=== PATIENT | female | born 1950 | race Caucasian/White ===

== ENCOUNTER → 2021-03-03 14:42 | Outpatient (BNVA) | payer MEDICARE, OTHER, SELFPAY | PROVIDERS: PCP Registered Nurse Rehabilitation; Visit Provider Psychiatry & Neurology Neurology | DX: G43.909 Migraine, unspecified, not intractable, without status migrainosus (principal); G20 Parkinson's disease | CPT/HCPCS: 99212 ==

== ENCOUNTER → 2021-06-30 10:19 | Outpatient (BNVA) | payer MEDICARE, OTHER, SELFPAY | PROVIDERS: PCP Registered Nurse Rehabilitation; Visit Provider Psychiatry & Neurology Neurology | DX: G20 Parkinson's disease (principal); G43.909 Migraine, unspecified, not intractable, without status migrainosus | CPT/HCPCS: 99212 ==

== ENCOUNTER → 2021-11-06 09:47 | Outpatient (BNVA) | payer MEDICARE, OTHER, SELFPAY | PROVIDERS: PCP Registered Nurse Rehabilitation; Visit Provider Psychiatry & Neurology Neurology | DX: G20 Parkinson's disease (principal); G43.909 Migraine, unspecified, not intractable, without status migrainosus | CPT/HCPCS: 99212 ==

== ENCOUNTER → 2022-05-06 10:45 | Outpatient (BNVA) | payer MEDICARE, OTHER, SELFPAY | PROVIDERS: PCP Registered Nurse Rehabilitation; Visit Provider Psychiatry & Neurology Neurology | DX: G20 Parkinson's disease (principal); G43.909 Migraine, unspecified, not intractable, without status migrainosus | CPT/HCPCS: 99212 ==

== ENCOUNTER 2022-11-10 10:16 | Outpatient (AMB) | payer MEDICARE, OTHER, SELFPAY ==
[2022-11-10 10:22] VITALS: BP 116/80; PULSE 69; O2SAT 99; BMI 20.9
--- NOTE | 2022-11-10 10:22 | A.OFFVIS_ITS ---
Intake Vital Signs 11/10/22 10:22 Height 5 ft 1 in Weight 110 lb 8 oz BMI 20.9 BP 116/80 Blood Pressure Location Lt brachial Position Sitting Pulse 69 Pulse Source Pulse Oximeter Pulse Oximetry (%) 99 Oxygen Delivery Method Room Air Intake Visit Reasons: 6mo f/u-lvm Intake Note: Pt presents to the office today for a 6 month follow up. Pt states she still has occasional migraines but the medication has been helpful. Pt states she has been having trouble sleeping. Patients has been noticing her body moving a lot more. Accompanied by: Spouse Allergies No Known Allergies Allergy (Verified 11/10/22 10:26) HPI HPI Comments History of Present Illness Details 72y/o female with parkinsons disease and migraines comes for follow up. She is on depakote 250 mg bid her migraines are well controlled. she had 1 migraine since last month and responds to imitrex 50mg .she has about 1-3 /month and responds to sumatriptan. she has mild increased tremors and feels she has more days. Her dyskinesias have increased No falls. Her gait is slow , she uses a cane. Her memory is stable Sleep is poor due increased dyskinesias at night which wakes her up.she also has increased leg movements which looks chorieform . No speech or swallowing issues. No hallucinations she is on rytary 2 caps bid and 3 caps qhs - the instruction was to decrea se to 2-2-1 and patient misunderstood. [facility] Medical History Migraine Parkinsons disease Surgical History History of hip surgery Family History Father Heart disease Alzheimer disease Mother Heart disease Diabetes Obesity Social History Household Members: Spouse Housing: House Alcohol intake: never Patient Tobacco Use Status: Never used Tobacco Physical Exam Vital Signs: Last Vital Signs Pulse 69 11/10/22 10:22 BP 116/80 11/10/22 10:22 Pulse Ox 99 11/10/22 10:22 Oxygen Delivery Method Room Air 11/10/22 10:22 BMI result Body Mass Index 20.9 Const Other: Mild decrease facial expression and blink Speech-mild dysprosody lucia UE tremors- intermittent and mild Right Ue cogwheel rigidty FFm and foot taps - mildly decreased Gait- better stride mild stoopand decreased arm swings no dyskinesias Assessment & Plan Assessment & Plan (1) Parkinsons disease: Code(s): G20 - Parkinson's disease (2) Migraine: Code(s): G43.909 - Migraine, unspecified, not intractable, without status migrainosus Plan Continue exercises. Continue depakote Er 250mg bid and imitrex 50mg as needed. Rytary 23.75/95 2 caps 6am, 12 noon, 2 caps 6pm Coding Level of Care Code Est Pt Level 4 (29596) Diagnoses Parkinsons disease G20 Migraine G43.909
== END 2022-11-10 10:53 | disposition home or self-care (01) ==
PROVIDERS: Visit Provider Psychiatry & Neurology Neurology
DX: G20 Parkinson's disease (principal); G43.909 Migraine, unspecified, not intractable, without status migrainosus
CPT/HCPCS: 99214

== ENCOUNTER → 2022-11-10 10:16 | Outpatient (BNVA) | payer MEDICARE, OTHER, SELFPAY | PROVIDERS: Visit Provider Psychiatry & Neurology Neurology | DX: G43.909 Migraine, unspecified, not intractable, without status migrainosus (principal); G20.C Parkinsonism, unspecified; Z79.899 Other long term (current) drug therapy | CPT/HCPCS: 99212 ==

== ENCOUNTER 2023-03-10 13:19 | Outpatient (AMB) | payer MEDICARE, OTHER, SELFPAY ==
--- NOTE | 2023-03-10 13:30 | MHC.OFFVIS ---
Intake Vital Signs 03/10/23 13:31 Height 5 ft 1 in Weight 113 lb 2 oz BMI 21.4 BP 142/82 H Blood Pressure Location Rt brachial Position Sitting Respiration 16 Pulse 78 Pulse Source Pulse Oximeter Pulse Oximetry (%) 97 Oxygen Delivery Method Room Air Intake Visit Reasons: 3 mnts f/u appt-CONFIRMED Intake Note: Pt presents for 3 month follow up for Parkinson's. 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 she had COVID 1 month ago and she recovered well. She is on depakote 250 mg bid her migraines are well controlled. she had 1 migraine since last month and responds to imitrex 50mg .she has about 1-3 /month and responds to sumatriptan. she has mild increased tremors and feels she has some freezing. Her dyskinesias have decreased with drop in rytary dose. No falls. Her gait is slow , she uses a cane. Her memory is stable .she also has increased leg movements which looks chorieform . No speech or swallowing issues. No hallucinations she is on rytary 2-2-1 and patient misunderstood. [facility] Medical History Migraine Parkinsons disease Surgical History History of hip surgery Family History Father Heart disease Alzheimer disease Mother Heart disease Diabetes Obesity Social History Household Members: Spouse Housing: House Alcohol intake: never Patient Tobacco Use Status: Never used Tobacco Physical Exam Vital Signs: Last Vital Signs Pulse 78 03/10/23 13:31 Resp 16 03/10/23 13:31 BP 142/82 H 03/10/23 13:31 Pulse Ox 97 03/10/23 13:31 Oxygen Delivery Method Room Air 03/10/23 13:31 BMI result Body Mass Index 21.4 Const Other: Mild decrease facial expression and blink Speech-mild dysprosody lucia UE tremors- intermittent and mild Right Ue cogwheel rigidty FFm and foot taps - mildly decreased Gait- better stride mild stoopand decreased arm swings no dyskinesias Orientation/consciousness: patient oriented x3 Neuro General: patient oriented x3 Cognition (Neuro): normal cognition Assessment & Plan Assessment & Plan (1) Parkinsons disease: Code(s): G20 - Parkinson's disease (2) Migraine: Code(s): G43.909 - Migraine, unspecified, not intractable, without status migrainosus Plan Increase exercises. declines PT Continue depakote Er 250mg bid and imitrex 50mg as needed. Rytary 23.75/95 2 caps 6am, 12 noon, 1 caps 6pm Coding Level of Care Code Est Pt Level 4 (66488) Diagnoses Parkinsons disease G20 Migraine G43.909
[2023-03-10 13:31] VITALS: BP 142/82; PULSE 78; RESP 16; O2SAT 97; BMI 21.4
== END 2023-03-10 14:00 | disposition home or self-care (01) ==
PROVIDERS: PCP Registered Nurse Rehabilitation; Visit Provider Psychiatry & Neurology Neurology
DX: G20.B2 Parkinson's disease with dyskinesia, with fluctuations (principal); G43.909 Migraine, unspecified, not intractable, without status migrainosus
CPT/HCPCS: 99214

== ENCOUNTER → 2023-03-10 13:19 | Outpatient (BNVA) | payer MEDICARE, OTHER, SELFPAY | PROVIDERS: PCP Registered Nurse Rehabilitation; Visit Provider Psychiatry & Neurology Neurology | DX: G20.A1 Parkinson's disease without dyskinesia, without mention of fluctuations (principal); G43.909 Migraine, unspecified, not intractable, without status migrainosus; Z79.899 Other long term (current) drug therapy | CPT/HCPCS: 99212 ==

== ENCOUNTER 2023-05-31 09:48 | Outpatient (AMB) | payer MEDICARE, OTHER, SELFPAY ==
[2023-05-31 10:03] VITALS: BP 120/70; PULSE 80; O2SAT 98; BMI 22.0
--- NOTE | 2023-05-31 10:03 | MHC.OFFVIS ---
Vital Signs 05/31/23 10:03 Height 5 ft 1 in Weight 116 lb 8 oz BMI 22.0 BP 120/70 Blood Pressure Location Rt brachial Position Sitting Pulse 80 Pulse Source Pulse Oximeter Pulse Oximetry (%) 98 Oxygen Delivery Method Room Air Intake Visit Reasons: 2 mo f/u-LVM Intake Note: Patient presents for a 3 month fu- Migraines Ham Doctor Required: No Accompanied by: Spouse Allergies No Known Allergies Allergy (Verified 05/31/23 10:08) HPI Comments Details: 73y/o female with parkinsons disease and migraines comes for follow up. She is on depakote 250 mg bid her migraines are well controlled. she has milder 2-3 migraine/ month and responds to imitrex 50mg .she has about 1-3 /month and responds to sumatriptan. she has mild increased tremors and feels she has some freezing. Her dyskinesias have decreased with drop in rytary dose. No falls. Her gait is slow , she uses a cane. Her memory is stable No speech or swallowing issues. No hallucinations she is on rytary 2-2-1 [facility] Medical History (Updated 05/31/23 @ 10:36 by Bing Farley MD) Parkinson's disease with dyskinesia Migraine Parkinsons disease Surgical History History of hip surgery Family History Father Heart disease Alzheimer disease Mother Heart disease Diabetes Obesity Social History Household Members: Spouse Housing: House Alcohol intake: never Patient Tobacco Use Status: Never used Tobacco Physical Exam Vital Signs: Last Vital Signs Pulse 80 05/31/23 10:03 BP 120/70 05/31/23 10:03 Pulse Ox 98 05/31/23 10:03 Oxygen Delivery Method Room Air 05/31/23 10:03 BMI result Body Mass Index 22.0 Const Other: Mild decrease facial expression and blink Speech-mild dysprosody No tremors Right Ue cogwheel rigidty FFm and foot taps - mildly decreased Gait- better stride mild stoop slowness with cane no dyskinesias Orientation/consciousness: patient oriented x3 Neuro General: patient oriented x3 Cognition (Neuro): normal cognition Assessment & Plan Assessment & Plan (1) Parkinson's disease with dyskinesia: Code(s): G20.B1 - Parkinson's disease with dyskinesia, without mention of fluctuations Category: Medical (2) Migraine: Code(s): G43.909 - Migraine, unspecified, not intractable, without status migrainosus Category: Medical Plan Increase exercises. PT Continue depakote Er 250mg bid and imitrex 50mg as needed. iLndsay 23.75/95 2 caps 6am, 12 noon, 1 caps 6pm Orders: Orders PT Evaluation and Treatment Today G20 - Parkinson's disease
== END 2023-05-31 10:40 | disposition home or self-care (01) ==
LOC: HO.HSMS 09:54
PROVIDERS: PCP Registered Nurse Rehabilitation; Visit Provider Psychiatry & Neurology Neurology
DX: G20.B1 Parkinson's disease with dyskinesia, without mention of fluctuations (principal); G43.909 Migraine, unspecified, not intractable, without status migrainosus
CPT/HCPCS: 99214

== ENCOUNTER → 2023-05-31 09:54 | Outpatient (BNVA) | payer MEDICARE, OTHER, SELFPAY | PROVIDERS: PCP Registered Nurse Rehabilitation; Visit Provider Psychiatry & Neurology Neurology | DX: G20.B1 Parkinson's disease with dyskinesia, without mention of fluctuations (principal); G43.909 Migraine, unspecified, not intractable, without status migrainosus; Z79.899 Other long term (current) drug therapy | CPT/HCPCS: 99212 ==

== ENCOUNTER 2023-12-06 10:18 | Outpatient (AMB) | payer MEDICARE, OTHER, SELFPAY ==
--- NOTE | 2023-12-06 10:19 | A.OFFVIS_ITS ---
Vital Signs 12/06/23 10:22 Height 5 ft 1 in Weight 110 lb 4 oz BMI 20.8 BP 122/80 Blood Pressure Location Lt brachial Position Sitting Pulse 75 Pulse Source Pulse Oximeter Pulse Oximetry (%) 98 Oxygen Delivery Method Room Air Intake Visit Reasons: follow up Intake Note: Patient presents in office for a 6 mo fu for Migraines. 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 She is on depakote 250 mg bid her migraines are well controlled. She has milder 2-3 migraine/ month and responds to imitrex 50mg. Her reports she has increased flailing of the arms and feet at night, she is somewhat forgetful and has more difficulty with initiating her steps, freezing during walking. Her dyskinesias have increased according to him at night as she keeps him up at night for about an hour during these episodes. No falls. Her gait is slow with knees bent, she uses a cane. No speech or swallowing issues, she completes all her ADLs with minimal help and visits their fabric store daily for walking and socialization. She reports no hallucinations. She is on ta 2-2-1 Depakote 250 mg BID. [facility] Medical History (Updated 12/06/23 @ 12:09 by Marleny Cavazos PA-C) Abnormality of gait due to impairment of balance Parkinson's disease with dyskinesia Migraine Parkinsons disease Surgical History History of hip surgery Family History Father Heart disease Alzheimer disease Mother Heart disease Diabetes Obesity Social History Household Members: Spouse Housing: House Alcohol intake: never Patient Tobacco Use Status: Never used Tobacco Review of Systems Const Reports as per HPI Neuro Details: Cooperative. Physical Exam Vital Signs: Last Vital Signs Pulse 75 12/06/23 10:22 BP 122/80 12/06/23 10:22 Pulse Ox 98 12/06/23 10:22 Oxygen Delivery Method Room Air 12/06/23 10:22 BMI result Body Mass Index 20.8 Const General: cooperative and comfortable Nutritional Appearance: thin Orientation/consciousness: patient oriented x3 Neuro General: patient oriented x3 Cranial nerves: Yes CN's II-XII intact bilaterally Cognition (Neuro): normal cognition Gait exam (Neuro): Steppage gait present (small steps, narrow gait), Assisted gait required (cane) Gait assisted method: other and Other gait observations present (Tilts to the left, Cane in Rt, L hand not swinging.) Pupils: Normal pupillary reactivity/response: bilateral Psych Speech and movement: Slowed movement present (Neuro) Attitude: cooperative Thought process: Normal thought process present Insight: Good insight present (Psych) Judgement: Good judgement present (Psych) Assessment & Plan Assessment & Plan (1) Periodic limb movements of sleep: Code(s): G47.61 - Periodic limb movement disorder Category: Medical Plan: Flailing movements of the upper and lower extremites Gabapentin 100 mg po daily at bedtime. (2) Parkinson's disease with dyskinesia: Code(s): G20.B1 - Parkinson's disease with dyskinesia, without mention of fluctuations Category: Medical Qualifiers: Fluctuating manifestations: with fluctuating manifestations Qualified Code(s): G20.B2 - Parkinson's disease with dyskinesia, with fluctuations Plan: For night time increased movements, will increase dosage of Rytary to 4x a day 2 in the morning, 2 at lunch and 2 at bedtime. Take medication on an empty stomach, no proteins within a 30 minute period, make sure to drink plenty of water. (3) Need for physical therapy assessment: Code(s): Z01.89 - Encounter for other specified special examinations Category: Medical Plan: Physical Therapy for gait tilt and balance while walking due to Parkinsons. Orders: Orders PT Evaluation and Treatment Today G20.B1 - Parkinson's disease with dyskinesia, without mention of fluctuations Coding Level of Care Code Tele Est Pt Level 4 (83421) Complex EM visit Add On G2211 Diagnoses Periodic limb movements of sleep G47.61 Parkinson's disease with dyskinesia and fluctuating manifestations G20.B2 Fluctuating manifestations: with fluctuating manifestations Need for physical therapy assessment Z01.89
[2023-12-06 10:22] VITALS: BP 122/80; PULSE 75; O2SAT 98; BMI 20.8
== END 2023-12-06 11:03 | disposition home or self-care (01) ==
LOC: HO.HSMS 10:18
PROVIDERS: PCP Registered Nurse Rehabilitation; Visit Provider Psychiatry & Neurology Neurology
DX: G47.61 Periodic limb movement disorder (principal); G20.B2 Parkinson's disease with dyskinesia, with fluctuations; Z01.89 Encounter for other specified special examinations
CPT/HCPCS: 99214; G2211

== ENCOUNTER → 2023-12-06 10:18 | Outpatient (BNVA) | payer MEDICARE, OTHER, SELFPAY | PROVIDERS: PCP Registered Nurse Rehabilitation; Visit Provider Psychiatry & Neurology Neurology | DX: G20.B2 Parkinson's disease with dyskinesia, with fluctuations (principal); G43.909 Migraine, unspecified, not intractable, without status migrainosus; G47.61 Periodic limb movement disorder | CPT/HCPCS: 99212 ==

== ENCOUNTER 2024-11-09 09:53 | Outpatient (AMB) | payer MEDICARE, OTHER, SELFPAY ==
--- NOTE | 2024-11-09 09:54 | A.OFFVIS_ITS ---
Vital Signs 11/09/24 09:55 Height 5 ft 1 in Weight 114 lb BMI 21.5 BP 128/82 Blood Pressure Location Rt brachial Position Sitting Pulse 76 Pulse Source Pulse Oximeter Pulse Oximetry (%) 97 Oxygen Delivery Method Room Air Intake Visit Reasons: Follow Up Intake Note: Follow up Periodic limb movement disorder and Parkinson's Front End Assistant Required: No Accompanied by: Spouse Allergies No Known Allergies Allergy (Verified 11/09/24 09:55) Medication List - Last Reconciled 11/09/24 by Bing Farley MD acetaminophen (Tylenol) 325 mg PO QID PRN carbidopa-levodopa 23.75-95 mg ER (Rytary) 3 caps PO TID divalproex ER (Depakote ER) 250 mg PO BID docusate sodium (Colace) 100 mg PO DAILY sumatriptan succinate (Imitrex) take 1 tab at onset of headache; if no relief may repeat 1 tab after at least 2 hrs; max = 4 tabs/24 hr PO HPI Comments Details: 74y/o female with parkinsons disease and migraines comes for follow up.No change since last visit. No falls , No hallucinations No dizziness. She is on depakote 250 mg bid her migraines are well controlled. She has milder 2-3 migraine/ month and responds to imitrex 50mg. Her dyskinesias are better. she slows down after 3 pm - more freezing episodes No falls. Her gait is slow with knees bent, she uses a cane. No speech or swallowing issues, she completes all her ADLs with minimal help and visits their fabric store daily for walking and socialization. She reports no hallucinations. She is on rytary 23/95 2-2-2 Depakote 250 mg BID. [facility] Medical History Abnormality of gait due to impairment of balance Parkinson's disease with dyskinesia Migraine Parkinsons disease Surgical History History of hip surgery Family History Father Heart disease Alzheimer disease Mother Heart disease Diabetes Obesity Social History Household Members: Spouse Housing: House Alcohol intake: never Patient Tobacco Use Status: Never used Tobacco Physical Exam Vital Signs: Last Vital Signs Pulse 76 11/09/24 09:55 BP 128/82 11/09/24 09:55 Pulse Ox 97 11/09/24 09:55 Oxygen Delivery Method Room Air 11/09/24 09:55 BMI result Body Mass Index 21.5 Const General: cooperative and comfortable Nutritional Appearance: thin Orientation/consciousness: patient oriented x3 Neuro Other: Right UE - cog wheel rigidity 2 + FFM decreased lucia R>L General: patient oriented x3 Cranial nerves: Yes CN's II-XII intact bilaterally Cognition (Neuro): normal cognition Gait exam (Neuro): Steppage gait present (small steps, narrow gait), Assisted gait required (cane) Gait assisted method: other and Other gait observations present (Tilts to the left, Cane in Rt, L hand not swinging.) Pupils: Normal pupillary reactivity/response: bilateral Psych Speech and movement: Slowed movement present (Neuro) Attitude: cooperative Thought process: Normal thought process present Insight: Good insight present (Psych) Judgement: Good judgement present (Psych) Assessment & Plan Assessment & Plan (1) Parkinson's disease with dyskinesia: Code(s): G20.B1 - Parkinson's disease with dyskinesia, without mention of fluctuations Category: Medical Qualifiers: Fluctuating manifestations: with fluctuating manifestations Qualified Code(s): G20.B2 - Parkinson's disease with dyskinesia, with fluctuations Plan: (2) Periodic limb movements of sleep: Code(s): G47.61 - Periodic limb movement disorder Category: Medical (3) Migraine: Code(s): G43.909 - Migraine, unspecified, not intractable, without status migrainosus Category: Medical Plan Increase exercises. Continue depakote Er 250mg bid and imitrex 50mg as needed. Increase Rytary 23.75/95 3 caps 6am, 12 noon, 6pm Medications: New carbidopa-levodopa 23.75-95 mg ER (Rytary) divide evenly over waking hours 3 caps PO TID 270 caps 6RF Refilled divalproex ER (Depakote ER) 250 mg PO BID 60 tabs 6RF Discontinued carbidopa-levodopa 23.75-95 mg ER (Rytary) Discontinued Reason: Duplicate 2 caps PO TID 90 days 540 caps 6RF Coding Level of Care Code Est Pt Level 4 (75682) Complex EM visit Add On G2211 Diagnoses Parkinson's disease with dyskinesia and fluctuating manifestations G20.B2 Fluctuating manifestations: with fluctuating manifestations Periodic limb movements of sleep G47.61 Migraine G43.909
[2024-11-09 09:55] VITALS: BP 128/82; PULSE 76; O2SAT 97; BMI 21.5
== END 2024-11-09 10:24 | disposition home or self-care (01) ==
LOC: HO.HSMS 09:54
PROVIDERS: PCP Registered Nurse Rehabilitation; Visit Provider Psychiatry & Neurology Neurology
DX: G20.B2 Parkinson's disease with dyskinesia, with fluctuations (principal); G47.61 Periodic limb movement disorder; G43.909 Migraine, unspecified, not intractable, without status migrainosus
CPT/HCPCS: 99214; G2211

== ENCOUNTER → 2024-11-09 09:53 | Outpatient (BNVA) | payer MEDICARE, OTHER, SELFPAY | PROVIDERS: PCP Registered Nurse Rehabilitation; Visit Provider Psychiatry & Neurology Neurology | DX: G20.B2 Parkinson's disease with dyskinesia, with fluctuations (principal); G47.61 Periodic limb movement disorder; G43.909 Migraine, unspecified, not intractable, without status migrainosus | CPT/HCPCS: 99212 ==